=== PATIENT | female | born 2000 | race Two or more races ===

== ENCOUNTER 2024-09-25 22:26 | Emergency (ER) | payer OTHER, SELFPAY ==
[~2024-09-25] VITALS: Ht 165.1 cm; Wt 80.4 kg
[2024-09-25 22:48] VITALS: BP 129/82; TEMP 98.3; O2SAT 100
== END 2024-09-26 00:18 | disposition left against medical advice (07) ==
LOC: M ED 22:26
DX: Z53.21 Procedure and treatment not carried out due to patient leaving prior to being seen by health care provider (principal)